=== PATIENT | male | born 1985 | race Caucasian/White ===

== ENCOUNTER 2021-01-08 13:41 | Emergency (ER) | payer OTHER, SELFPAY ==
--- NOTE | 2021-01-08 13:45 | ED.EYEPROB ---
HPI - Eye Problem General Chief complaint: Eye Problems Stated complaint: left eye Time Seen by Provider: 01/08/21 14:20 Source: patient and RN notes reviewed Mode of arrival: ambulatory Limitations: no limitations History of Present Illness HPI Narrative: 36-year-old male presents concern for left eye pain, light sensitivity, watery drainage. Reports yesterday he was wrestling with his son when he felt a traveling electrician the eye. He denies any foreign body, purulent drainage, vision changes. Denies any swelling, surrounding lacerations, abrasions, rash. chief complaint: eye pain Related Data Allergies Allergy/AdvReac Type Severity Reaction Status Date / Time No Known Allergies Allergy Mild Unverified 01/08/21 13:53 Review of Systems Review of Systems: CONSTITUTIONAL: Denies malaise, chills, sweats, or fever. EYES: Denies visual changes. Reports left eye redness, watery drainage, pain, light sensitivity ENT: Denies rhinorrhea, congestion, sinus pain, otalgia or sore throat. SKIN: Denies rash or itching. NEUROLOGIC: Denies headache. All systems reviewed & are unremarkable except as noted in HPI and below PMFSH Comments At time of signature, agree with nursing past medical, surgical, social and family history. There is no relevant family history pertinent to the presenting complaint Exam Narrative: GENERAL: Well-appearing, well-nourished, and in no acute distress. HEAD: Normocephalic, atraumatic. EYES: PERRLA, right sclera and conjunctivae clear, and EOMI. No nystagmus. Left conjunctivae injected, no purulent drainage noted, no eyelid edema noted. Corneal abrasion noted upon Jackson lamp exam, see note ENT: Mucous membranes moist. NECK: Supple. CHEST: No respiratory distress.Speaks in full sentences. HEART: Regular rate and rhythm. SKIN: Warm, dry, no rash. NEURO: Alert and oriented x3. PSYCH: Normal mood and affect Course Course Emergency Course: Patient is aware of diagnosis, understands and agrees to treatment plan. Anticipatory guidance given. Patient agrees to follow-up as directed and is aware of reasons to seek care at the emergency department. Portions of this record may have been created with voice recognition software Vital Signs Vital signs: Reviewed. Procedures Other Procedure Procedure 1: Other Procedure: Tetracaine 1 gtt instilled in left eye, fluorescein stain applied. Corneal abrasion noted upon jackson lamp exam at approximately 3 o'clock in relation to the pupil. Eye washed with NS 100 ml. No foreign bodies or Angelina sign noted. MDM - Eye Problem MDM Narrative Medical decision making narrative: Consideration of the following conditions may be warranted for the presenting problem, they are not final diagnoses: Bacterial conjunctivitis, allergic conjunctivitis, viral conjunctivitis, foreign body, blepharitis, chalazion, hordeolum, corneal abrasion, preseptal cellulitis, orbital cellulitis. No evidence of proptosis, ophthalmoplegia, vision loss, pain with eye movement. Exam findings show no acute concerns or changes; patient is non-toxic appearing and is in no distress. Patient is appropriate for outpatient treatment and follow-up. Critical Care Time Critical Care Time Critical Care Time: No Discharge Plan Discharge Clinical Impression: Corneal abrasion Qualifiers: Encounter type: initial encounter Laterality: left Qualified Code(s): S05.02XA - Injury of conjunctiva and corneal abrasion without foreign body, left eye, initial encounter Patient Disposition: Home, Self-Care Condition: Stable Instructions: Corneal Abrasion (ED) Additional Instructions: Corneal abrasions will heal in 1-2 days. Keep your eye shut and wearing sunglasses or staying in low light to avoid light sensitivity. Do not touch or rub your eye or use a fabric patch ( pirate's patch ) You may take Tylenol or ibuprofen for pain Follow-up with PCP or media associate if condition is not improving in 2-3days.
[2021-01-08 13:51] VITALS: BP 126/86; PULSE 90; RESP 90; TEMP 36.3; O2SAT 97
[2021-01-08 13:54] VITALS: BP 126/86; PULSE 90; RESP 90; TEMP 36.3; O2SAT 97
== END 2021-01-08 14:35 | disposition home or self-care (01) ==
PROVIDERS: Emergency Provider Nurse Practitioner
DX: S05.02XA Injury of conjunctiva and corneal abrasion without foreign body, left eye, initial encounter (principal); W51.XXXA Accidental striking against or bumped into by another person, initial encounter; Y93.83 Activity, rough housing and horseplay
CPT/HCPCS: 99213; A9270; G0463

== ENCOUNTER 2023-05-14 14:26 | Outpatient (CLI) | payer OTHER, SELFPAY ==
--- NOTE | ~2023-05-14 | XR_ITS ---
EXAMINATION: XR lumbar spine 2-3V DATE: 05/14/2023 14:43 INDICATION: Low back pain TECHNIQUE: Anteroposterior and lateral views of the lumbar spine, and cone-down lateral view of the l umbosacral junction were obtained. COMPARISON: None FINDINGS: There are 2 mm of retrolisthesis of L5 on S1. Bone alignment is otherwise normal. There is no fracture. The vertebral body heights and intervertebral disc spaces are maintained. There is mild facet joint osteoarthritis of the lower lumbar spine. Calcified atherosclerosis is noted. IMPRESSION: 1. Mild lumbar spondylosis without acute findings. Reviewed, dictated and finalized at location B. RALIST
== END 2023-05-14 14:27 | disposition home or self-care (01) ==
LOC: ANHIMG 14:33
PROVIDERS: PCP Internal Medicine; Visit Provider Internal Medicine
DX: M54.41 Lumbago with sciatica, right side (principal); G89.29 Other chronic pain; M43.06 Spondylolysis, lumbar region
CPT/HCPCS: 72100